=== PATIENT | male | born 1975 | race Caucasian/White ===

== ENCOUNTER 2020-07-29 07:37 | Emergency (ER) | payer OTHER ==
[~2020-07-29] VITALS: Ht 170.2 cm; Wt 76.2 kg
[2020-07-29] MEDS ORDERED: TORADOL 10 MG T10 MG PO (09:03)
[2020-07-29] MEDS ORDERED: CYCLOBENZAPRINE5 MG PO (09:03)
[2020-07-29 09:22] VITALS: BP 128/83
== END 2020-07-29 09:24 | disposition home or self-care (01) ==
LOC: M.ERS 07:37
DX: S29.012A Strain of muscle and tendon of back wall of thorax, initial encounter (principal); M79.18 Myalgia, other site; F17.210 Nicotine dependence, cigarettes, uncomplicated; X50.9XXA Other and unspecified overexertion or strenuous movements or postures, initial encounter; Y93.89 Activity, other specified; Y92.89 Other specified places as the place of occurrence of the external cause; Y99.8 Other external cause status